=== PATIENT | female | born 1975 | race African-American/Black ===

== ENCOUNTER 2023-01-04 08:15 | Inpatient (IN) | payer OTHER ==
[~2023-01-04] VITALS: Ht 170.2 cm; Wt 66.7 kg
[2023-01-06] MEDS ORDERED: SPRINTEC 28 DA1 EACH (11:17)
[2023-01-09] MEDS ORDERED: KETO10TA2 PO (10:40)
[2023-01-09] MEDS ORDERED: ACETAMINOPHEN-1 EAC2 PO (10:41)
== END 2023-01-09 11:27 | disposition home or self-care (01) | DRG 743 ==
LOC: O/R 01-06 06:35 → OB/GYN 01-06 06:35
PROVIDERS: ADMIT Obstetrics & Gynecology Maternal & Fetal Medicine; ATTEND Obstetrics & Gynecology Maternal & Fetal Medicine
PROC: 0UT90ZL Resection of Uterus, Supracervical, Open Approach (ICD-10-PCS; principal; 2023-01-06 07:00)
DX: D25.1 Intramural leiomyoma of uterus (principal); D25.2 Subserosal leiomyoma of uterus; D25.0 Submucous leiomyoma of uterus; Z20.822 Contact with and (suspected) exposure to COVID-19